=== PATIENT | female | born 1985 | race Caucasian/White ===

== ENCOUNTER 2016-08-07 09:53 | Emergency (ER) | payer MEDICAID ==
[2016-08-07] MEDS ORDERED: NS 1,000 ML IV ONE (09:59)
[2016-08-07] MEDS ORDERED: ONDANSETRON 4 MG/2 ML VIAL IVP ONE ×2 (09:59→11:57)
[2016-08-07] MEDS ORDERED: HYDROmorphONE/DILAUDID 1 MG/ML SYR IVP ONE ×2 (09:59→11:57)
[2016-08-07 10:04] VITALS: TEMP 99
[2016-08-07 11:05] LABS: % IMMATURE GRANULYOCYTES 0.1 % (0.0-1.1); ABSOLUTE IMMATURE GRANULOCYTES 0.01 10^3/uL (0.00-0.10); ADD DIFF? NO; ADD MORPH? NO; ADD SCAN? NO; ATYPICAL LYMPHOCYTE FLAG 10 (0-99); FRAGMENT RBC FLAG 0 (0-99); HEMATOCRIT 44.9 % (38.0-47.0); HEMOGLOBIN 15.3 g/dL (12.6-16.3); LEFT SHIFT FLG 0 (0-99); LIPEMIA HEMOLYSIS FLAG 90 (0-99); MEAN CELL HEMOGLOBIN 28.9 pg (27.9-34.1); MEAN CELL HEMOGLOBIN CONCENTR. 34.1 g/dL (32.4-36.7); MEAN CELL VOLUME 84.9 fL (81.5-99.8); MEAN PLATELET VOLUME 10.4 fL (8.7-11.7); PLATELET CLUMPS FLAG 0 (0-99); PLATELET COUNT 224 10^3/uL (150-400); RED BLOOD CELL COUNT 5.29 10^6/uL (4.18-5.33); RED CELL DISTRIBUTION WIDTH 12.8 % (11.5-15.2)
[2016-08-07 11:20] LABS: ALANINE AMINOTRANSFERASE 29 IU/L (9-52); ALBUMIN 4.4 g/dL (3.5-5.0); ALKALINE PHOSPHATASE 122 IU/L (38-126); ANION GAP 11 mEq/L (8-16); ASPARTATE AMINOTRANSFERASE 21 IU/L (14-46); BILIRUBIN,TOTAL 0.7 mg/dL (0.1-1.4); BILIRUBIN-CONJUGATED 0.4 mg/dL (0.0-0.5); BILIRUBIN-UNCONJUGATED 0.3 mg/dL (0.0-1.1); CALCIUM 9.6 mg/dL (8.5-10.4); CARBON DIOXIDE 26 mEq/l (22-31); CHLORIDE 107 mEq/L (97-110); CREATININE 0.7 mg/dL (0.6-1.0); GLOMERULAR FILTRATION RATE > 60; GLUCOSE 87 mg/dL (70-100); POTASSIUM 4.5 mEq/L (3.5-5.2); SODIUM 144 mEq/L (134-144)
[2016-08-07 12:05] LABS: COLOR YELLOW; LEUKOCYTE ESTERASE,URINE TRACE (NEGATIVE); NITRITE,URINE NEGATIVE (NEGATIVE)
[2016-08-07 12:22] LABS: BACTERIA TRACE /hpf (NONE SEEN); MUCUS TRACE /lpf (NONE-1+)
[2016-08-07] MEDS ORDERED: CEPHALEXIN 500 MG CAP PO ONE (12:35)
--- NOTE | 2016-08-07 12:38 | EDPHY ---
H & P Stated Complaint: chronic abdominal pain HPI/ROS: Chief complaint: Abdominal pain History of present illness: This is a 31-year-old female with a history of chronic abdominal pain who presents to the emergency department with EMS for an exacerbation of the pain. She reports the onset of symptoms over the last day. She has had nausea and vomiting. She denies precipitating factors. She denies alleviating factors. She denies other associated signs or symptoms including no urinary symptoms, no vaginal discharge, no diarrhea or constipation. Review of systems: A 10 point review of systems was obtained and other than described above was negative - Personal History LMP (Females 10-55): Over 28 Days Ago Current Tetanus Diphtheria and Acellular Pertussis (TDAP): Yes Tetanus Vaccine Date: 2011 - Medical/Surgical History Hx Asthma: No Hx Chronic Respiratory Disease: No Hx Diabetes: No Hx Cardiac Disease: No Hx Renal Disease: No Hx Cirrhosis: No Hx Alcoholism: No Hx HIV/AIDS: No Hx Splenectomy or Spleen Trauma: No Other PMH: pmh/PSH: d&C. hiatal hernia, PTSD, Abdominal Pain - Social History Smoking Status: Current every day smoker - Physical Exam Exam: General Appearance: Alert, nontoxic. Eyes: Pupils equal and round no pallor or injection. ENT, Mouth: Mucous membranes moist. Respiratory: There are no retractions, lungs are clear to auscultation. Cardiovascular: Regular rate and rhythm. Gastrointestinal: Abdomen is soft and non tender, no masses, bowel sounds normal. Genitourinary: No CVA tenderness. Neurological: Alert and oriented x4. Strength and sensation intact and symmetrical. Skin: Warm and dry, no rashes. Musculoskeletal: Neck is supple non tender. Extremities are symmetrical, full range of motion. Psychiatric: Patient is oriented X 3, there is no agitation. Constitutional: Initial Vital Signs Temperature (C) 37.2 C 08/07/16 10:02 Heart Rate 84 08/07/16 10:02 Respiratory Rate 16 08/07/16 10:02 Blood Pressure 109/80 08/07/16 10:02 O2 Sat (%) 96 08/07/16 10:02 O2 Delivery Mode Room Air Allergies/Adverse Reactions: divalproex sodium [From Depakote] Allergy (Mild, Verified 08/07/16 10:01) Rash carbamazepine [From Tegretol] Allergy (Unknown, Verified 08/07/16 10:01) fluvoxamine maleate [From Luvox] Allergy (Unknown, Verified 08/07/16 10:01) lithium [[place]] Allergy (Unknown, Verified 08/07/16 10:01) Home Medications: Medication Instructions Recorded Ondansetron Odt [Zofran Odt] 4 mg PO Q4PRN PRN #4 tab 05/28/16 Cephalexin [Keflex] 500 mg PO TID 7 Days 08/07/16 Hydrocodone/APAP 5/325 [[place] 1 tab PO Q6H #10 tab 08/07/16 5/325 (*)] Protonix 08/07/16 Medical Decision Making ED Course/Re-evaluation: Patient seen under the supervision of my secondary supervising physician Dr. Arash Salamanca. Patient presents to the emergency department for abdominal pain. On presentation she is nontoxic. Afebrile and vital signs are stable. Physical exam is unremarkable. She has had serial abdominal exams which remain benign. Laboratory studies are largely unremarkable. Urinalysis is concerning for an infection. She is symptomatically treated with improvement in symptoms. She is tolerating oral challenges. She will be discharged home. Home care is discussed including pain management. She is also started on antibiotics for potential urinary tract infection. She is asked to follow up with a primary care doctor for recheck. Return precautions are given. Patient voiced understanding and agreement with plan. Differential Diagnosis: Included but not limited to gastritis, gastroenteritis irritable bowel syndrome , biliary tract disease pancreatitis, colitis, urinary tract disease, with associated complications - Data Points Laboratory Results: Laboratory Results 08/07/16 09:50 08/07/16 09:50 Microbiology Results: MICROBIOLOGY 08/07/16 12:09 Urine,Clean Catch Urine Culture - Preliminary [place] Types Medications Given: Discontinued Medications Cephalexin HCl (Keflex) 500 mg PO EDNOW ONE PRN Reason: Protocol Stop: 08/07/16 12:36 Last Admin: 08/07/16 12:46 Dose: 500 mg Hydromorphone HCl (Dilaudid) 1 mg IVP EDNOW ONE Stop: 08/07/16 10:00 Last Admin: 08/07/16 10:11 Dose: 1 mg Hydromorphone HCl (Dilaudid) 1 mg IVP EDNOW ONE Stop: 08/07/16 11:58 Last Admin: 08/07/16 12:06 Dose: 1 mg Sodium Chloride (Ns) 1,000 mls @ 0 mls/hr IV ONCE ONE PRN Reason: Wide Open Stop: 08/07/16 10:00 Last Admin: 08/07/16 10:11 Dose: 1,000 mls Ondansetron HCl (Zofran) 4 mg IVP EDNOW ONE Stop: 08/07/16 10:00 Last Admin: 08/07/16 10:11 Dose: 4 mg Ondansetron HCl (Zofran) 4 mg IVP EDNOW ONE Stop: 08/07/16 11:58 Last Admin: 08/07/16 12:06 Dose: 4 mg Departure - Departure Disposition: Home, Routine, Self-Care Clinical Impression: Abdominal pain Qualifiers: Abdominal location: generalized Qualifier Code: (R10.84) Generalized abdominal pain Urinary tract infection Qualifiers: Urinary tract infection type: site unspecified Hematuria presence: with hematuria Qualifier Code: (N39.0) Urinary tract infection, site not specified Condition: Good Instructions: Abdominal Pain (ED), Urinary Tract Infection in Women (ED) Additional Instructions: Follow-up with your primary care doctor this week for recheck If symptoms worsen or new symptoms develop return to the emergency department for recheck Referrals: Patt Toro CNP [Primary Care Provider] - As per Instructions Prescriptions: Cephalexin [Keflex] 500 mg PO TID 7 Days Hydrocodone/APAP 5/325 [[place] 5/325 (*)] 1 tab PO Q6H #10 tab
[2016-08-07 12:45] VITALS: BP 98/56
[2016-08-07 12:57] VITALS: PULSE 72; RESP 18; O2SAT 95
== END 2016-08-07 13:00 | disposition home or self-care (01) ==
LOC: EDUNIT#
DX: N39.0 Urinary tract infection, site not specified (principal); F17.200 Nicotine dependence, unspecified, uncomplicated; B96.89 Other specified bacterial agents as the cause of diseases classified elsewhere
CPT/HCPCS: 96374; J1170; J2405

== ENCOUNTER 2016-11-15 13:43 | Emergency (ER) | payer MEDICAID ==
[2016-11-15 13:59] VITALS: BP 105/72; PULSE 101; RESP 16; TEMP 98.6; O2SAT 97
--- NOTE | 2016-11-15 14:30 | EDPHY ---
H & P Time Seen by Provider: 11/15/16 14:08 HPI/ROS: Chief complaint. Side effects from implantable contraception HPI. 31-year-old female presents emergency department wanting to have her implantable contraception removed. The implant has been present for 2 years in the left upper arm. She says she has had headaches and abdominal pain and has been so sick. Symptoms apparently began after she had the implant placed. Was placed by [facility] who referred her to the emergency department because it needed to come out immediately. ROS Constitutional. no fever/chills, no weakness Eyes. no problems with vision ENT. no sore throat, no nasal drainage Cardiovascular. no chest pain Respiratory. no shortness of breath, no cough Abdominal. Abdominal pain . no problems urinating MS. no calf pain/swelling, no neck/back pain, no joint pain Skin. no rash Lymph. no swollen glands Neuro. Headache Past Medical/Surgical History: Hiatal hernia, PTSD, chronic abdominal pain Social History: Single, daily smoker, no alcohol Smoking Status: Current every day smoker Physical Exam: General Appearance: Alert well-developed female no distress. Vital signs stable other than heart rate 101 Eyes: Pupils equal and round no pallor or injection. ENT, Mouth: Mucous membranes are moist. Respiratory: There are no retractions, lungs are clear to auscultation. Cardiovascular: Regular rate and rhythm. Gastrointestinal: Abdomen is soft and nontender, no masses, bowel sounds normal. Neurological: Awake and alert, sensory and motor exams grossly normal. Skin: The slender isela of the implant is palpable under the skin of the left upper inner arm. There is no surface erythema Musculoskeletal: Neck is supple nontender. Extremities symmetrical, full range of motion. Psychiatric: Patient is oriented X 3, there is no agitation. Constitutional: Initial Vital Signs Temperature (C) 37 C 11/15/16 13:54 Heart Rate 101 H 11/15/16 13:54 Respiratory Rate 16 11/15/16 13:54 Blood Pressure 105/72 11/15/16 13:54 O2 Sat (%) 97 11/15/16 13:54 O2 Delivery Mode Room Air Allergies/Adverse Reactions: divalproex sodium [From Depakote] Allergy (Mild, Verified 08/07/16 10:01) Rash carbamazepine [From Tegretol] Allergy (Unknown, Verified 08/07/16 10:01) fluvoxamine maleate [From Luvox] Allergy (Unknown, Verified 08/07/16 10:01) lithium [[place]] Allergy (Unknown, Verified 08/07/16 10:01) Home Medications: Medication Instructions Recorded Ondansetron Odt [Zofran Odt] 4 mg PO Q4PRN PRN #4 tab 05/28/16 Cephalexin [Keflex] 500 mg PO TID 7 Days 08/07/16 Hydrocodone/APAP 5/325 [[place] 1 tab PO Q6H #10 tab 08/07/16 5/325 (*)] Protonix 08/07/16 Medical Decision Making Procedures: Review of implant and removal procedures reviewed on up-to-date. There is a short online course for placing them as well as removing them. Up-to-date also states that removal is never an emergency. ED Course/Re-evaluation: The patient and I discussed removal and her symptoms. I have not taken the online course and do not feel qualified to remove the implant. There is certainly no emergency today to remove it as it has been present for 2 years. I have encouraged the patient to make an appointment with a physician who put it in at [facility] for removal. She expresses understanding and agreement Differential Diagnosis: Multiple complaints that are chronic and may or may not be reviewed related to the implant. There appears to be no acute medical problem today. Departure - Departure Disposition: Home, Routine, Self-Care Clinical Impression: Encounter for surveillance of implantable subdermal contraceptive Condition: Good Instructions: Injectable Contraception (ED) Additional Instructions: Please make an appointment at [facility] for implant removal Referrals: NONE *PRIMARY CARE P,. [Primary Care Provider] - As per Instructions [facility] [Outside] - 5-7 days, call for appt.
== END 2016-11-15 14:52 | disposition home or self-care (01) ==
DX: Z30.432 Encounter for removal of intrauterine contraceptive device (principal); F17.200 Nicotine dependence, unspecified, uncomplicated

== ENCOUNTER 2016-12-25 11:04 | Emergency (ER) | payer MEDICAID ==
[2016-12-25] MEDS ORDERED: IBUPROFEN 600 MG TAB PO ONE (11:24)
[2016-12-25] MEDS ORDERED: CLINDAMYCIN 900 MG/DEXTROSE 50 ML IV ONE (11:45)
[2016-12-25] MEDS ORDERED: DEXAMETHASONE 10 MG/ML VIAL IVP ONE (11:45)
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
[2016-12-25] MEDS ORDERED: KETOROLAC 30 MG/1 ML SDV IVP ONE (12:26)
[2016-12-25 13:21] VITALS: BP 142/77; PULSE 77; RESP 16; TEMP 98.6; O2SAT 98
== END 2016-12-25 13:20 | disposition home or self-care (01) ==
DX: J36 Peritonsillar abscess (principal); F17.200 Nicotine dependence, unspecified, uncomplicated
CPT/HCPCS: 96365; J1885

== ENCOUNTER 2017-05-21 07:23 | Emergency (ER) | payer MEDICAID ==
[2017-05-21 07:36] VITALS: BP 113/77; PULSE 87; RESP 18; TEMP 99; O2SAT 98
[2017-05-21] MEDS ORDERED: ACETAMINOPHEN 325 MG TAB PO ONE (07:48)
--- NOTE | 2017-05-21 08:02 | EDPHY ---
H & P Time Seen by Provider: 05/21/17 07:47 HPI/ROS: CHIEF COMPLAINT: Sore throat, cough, chest pain, headache HISTORY OF PRESENT ILLNESS: Patient is a 32-year-old female who presents emergency department with multiple complaints. The patient states her son was sick for the past 3 days. "I am sure I caught what he had. "She now has a persistent cough that is nonproductive. Her chest hurts when she coughs. She states that she has a "hernia in my throat. "She describes a mild diffuse headache. She has had a subjective fever. Sore throat is moderate and diffuse. It is worse when she swallows. No significant shortness of breath. No abdominal pain. No nausea or vomiting. Patient describes diffuse body aches. No rash. REVIEW OF SYSTEMS: My complete review of systems is negative except as mentioned in the HPI. Past Medical/Surgical History: Includes hiatal hernia Past surgical history: D and C Social history: The patient smokes cigarettes Smoking Status: Current every day smoker Physical Exam: 37.2, 113/77, 87, 18, 98% on room air GENERAL: No acute distress, alert. HEENT: Eyes normal to inspection, no signs of dehydration. Mild pharyngeal erythema. No swelling or asymmetry. Uvula is midline. There are no lesions or discharge. NECK: No thyromegaly, no lymphadenopathy, supple. RESPIRATORY: Clear to auscultation bilaterally, no rales, rhonchi or wheezing. CVS: Regular rate and rhythm, no rubs, murmurs, or gallops. ABDOMEN: Soft, nontender, nondistended, no organomegaly. BACK: Normal to inspection, no CVA tenderness. SKIN: Normal color, no rash, warm, dry. No pallor. EXTREMITIES: No pedal edema, no calf tenderness, no Homans sign or cords, no joint swelling. NEURO/PSYCH: Alert and oriented x3, normal mood and affect, normal motor sensory exam. Constitutional: Initial Vital Signs Temperature (C) 37.2 C 05/21/17 07:34 Heart Rate 87 05/21/17 07:34 Respiratory Rate 18 05/21/17 07:34 Blood Pressure 113/77 05/21/17 07:34 O2 Sat (%) 98 05/21/17 07:34 O2 Delivery Mode Room Air Allergies/Adverse Reactions: divalproex sodium [From Depakote] Allergy (Mild, Verified 12/25/16 11:05) Rash carbamazepine [From Tegretol] Allergy (Unknown, Verified 12/25/16 11:05) fluvoxamine maleate [From Luvox] Allergy (Unknown, Verified 12/25/16 11:05) lithium [[place]] Allergy (Unknown, Verified 12/25/16 11:05) Home Medications: Medication Instructions Recorded AZITHROMYCIN [Z-PACK] 250 mg PO DAILY #1 packet 05/21/17 Medical Decision Making ED Course/Re-evaluation: In the emergency department I discussed the findings with the patient. I answered all her questions. Patient will be given azithromycin prescription due to her coughing and cigarette use. I do not feel the patient needs imaging at this time. Her oxygen saturation was 98%, blood pressure, respiratory rate and heart rate were normal. Patient's son who was also sick is now feeling much better. He had been sick for 3 days. I think this makes influenza less likely. Differential Diagnosis: My differential includes but is not limited to URI, influenza, pharyngitis, bacteremia, sepsis, pneumonia, bronchitis, sinusitis - Data Points Medications Given: Discontinued Medications Acetaminophen (Tylenol) 650 mg PO EDNOW ONE Stop: 05/21/17 07:49 Last Admin: 05/21/17 07:52 Dose: 650 mg Departure - Departure Disposition: Home, Routine, Self-Care Clinical Impression: Viral syndrome URI (upper respiratory infection) Qualifiers: URI type: unspecified URI Qualified Code(s): J06.9 - Acute upper respiratory infection, unspecified Condition: Good Instructions: Viral Syndrome (ED), Upper Respiratory Infection (ED) Additional Instructions: Return with increasing symptoms or any other concerns. Take your entire course of antibiotics. Referrals: Valencia Lewis DO [Doctor of Osteopathy] - 2-3 days, if not improved Prescriptions: AZITHROMYCIN [Z-PACK] 250 mg PO DAILY #1 packet
== END 2017-05-21 08:13 | disposition home or self-care (01) ==
DX: J06.9 Acute upper respiratory infection, unspecified (principal); B34.9 Viral infection, unspecified; F17.210 Nicotine dependence, cigarettes, uncomplicated

== ENCOUNTER 2018-12-10 18:15 | Emergency (ER) | payer MEDICAID | END 2018-12-10 19:26 | disposition left against medical advice (07) ==